=== PATIENT | female | born 1940 | race Caucasian/White ===

== ENCOUNTER 2017-11-18 10:27 | Emergency (ER) | payer MEDICARE ==
[~2017-11-18] VITALS: Ht 152.4 cm; Wt 58.5 kg
[2017-11-18] MEDS ORDERED: ASCO500C18 PO (10:33)
[2017-11-18] MEDS ORDERED: CALCIUM (10:33)
--- NOTE | 2017-11-18 10:38 | NUR ---
PT IS IN ROOM #2A. DR CLEMONS EVALUATED THE PT.
[2017-11-18] MEDS ORDERED: HYDROCODONE/APAP 5-325MG TABLET PO ONE (10:45)
[2017-11-18] MEDS ORDERED: HYDROCODONE/APAP 5-325MG TABLET ONE (10:45)
[2017-11-18 11:31] LABS: *BLOOD, URINE 1+ (NEGATIVE); *CLARITY,URINE CLEAR (CLEAR); *COLOR,URINE YELLOW (YELLOW); *KETONES,URINE 3+ (NEGATIVE); *UROBILINOGEN,URINE 0.2 E.U./dl (NORMAL); LEUKOCYTE ESTERASE ,URINE NEGATIVE (NEGATIVE); NITRITE, URINE NEGATIVE (NEGATIVE); PH,URINE 5.5 (5.0-8.0); UGLUCOSE NEGATIVE (NEGATIVE)
[2017-11-18 11:54] LABS: *BILIRUBIN,URIN 1+ (NEGATIVE); *PROTEIN,URINE 1+ (NEGATIVE)
[2017-11-18 11:55] LABS: BACTERIA,URINE NONE SEEN /HPF (NONE SEEN); SQUAMOUS EPITHELIAL CELL,UR FEW /HPF (NONE SEEN); WBC,URINE 0-3 /HPF (0-3)
[2017-11-18 11:56] LABS: MUCUS,URINE FEW /LPF (0-FEW)
[2017-11-18 12:30] VITALS: BP 142/81
--- NOTE | 2017-11-18 12:30 | NUR ---
PT WAS D/C TO HOME. D/C INSTRUCTIONS GIVEN TO THE PT.
== END 2017-11-18 12:31 | disposition home or self-care (01) ==
LOC: ER 10:27
DX: R10.9 Unspecified abdominal pain (principal); Z79.899 Other long term (current) drug therapy
CPT/HCPCS: A4663

== ENCOUNTER 2018-05-21 19:48 | Inpatient (IN) | payer MEDICARE ==
[~2018-05-21] VITALS: Ht 152.4 cm; Wt 52.2 kg
[~2018-05-21 19:48] MED LIST: ASCO500C18 PO; CALCIUM
[2018-05-21] MEDS ORDERED: IV NORMAL SALINE 1000 ML BAG IV ONE (21:15)
[2018-05-21] MEDS ORDERED: HYDROMORPHONE 1 MG/1 ML DISP.SYRIN IV ONE (21:15)
[2018-05-21] MEDS ORDERED: ONDANSETRON 4 MG/2 ML VIAL IV ONE (21:15)
[2018-05-21] MEDS ORDERED: ONDANSETRON 4 MG/2 ML VIAL ONE (21:23)
[2018-05-21] MEDS ORDERED: HYDROMORPHONE 1 MG/1 ML DISP.SYRIN ONE (21:23)
[2018-05-21 21:40] LABS: BASOPHILS # (AUTO) 0.1 K/uL (0.0-8.0); BASOPHILS % (AUTO) 0.7 % (0.0-2.0); EOSINOPHILS # (AUTO) 0.1 K/uL (0.0-0.7); EOSINOPHILS % (AUTO) 0.6 % (0.0-7.0); HEMATOCRIT 44.8 % (31.2-41.9); LYMPHOCYTES % (AUTO) 7.8 % (20.5-51.5); MEAN CORPUSCULAR HEMOGLOBIN 30.8 uug (24.7-32.8); MEAN CORPUSCULAR HGB CONC 33 g/dL (32.3-35.6); MEAN CORPUSCULAR VOLUME 92.1 fL (75.5-95.3); MONOCYTES # (AUTO) 0.7 K/uL (2.0-10.0); MONOCYTES % (AUTO) 5.2 % (0.0-11.0); NEUTROPHILS % (AUTO) 85.7 % (38.5-71.5); PLATELET COUNT (AUTO) 396 K/uL (179-408); RED BLOOD CELL COUNT(AUTO) 4.86 MIL/uL (3.63-4.92); WHITE BLOOD COUNT (AUTO) 12.8 K/uL (3.8-11.8)
[2018-05-21 21:48] LABS: CARBON DIOXIDE 27 mmol/L (21-32); CHLORIDE 105 mmol/L (98-107); CREATININE 0.6 mg/dL (0.6-1.3); GLUCOSE 109 mg/dL (74-106); POTASSIUM 4.5 mmol/L (3.5-5.1); UREA NITROGEN, BLOOD 16 mg/dL (7-18)
[2018-05-21 21:54] LABS: ALANINE AMINOTRANSFERASE 26 U/L (14-59); ASPARTATE AMINOTRANSFERASE 20 U/L (15-37); BILIRUBIN,DIRECT < 0.1 mg/dL (0.0-0.2); BILIRUBIN,TOTAL 0.4 mg/dL (0.2-1.0); TOTAL PROTEIN, SERUM 6.9 g/dL (6.4-8.2)
[2018-05-21 22:07] LABS: ALKALINE PHOSPHATASE 97 U/L (50-136)
[2018-05-21] MEDS ORDERED: PIPERACILLIN/TAZO 4.5 GM VIAL IV ONE (23:07)
[2018-05-21] MEDS ORDERED: ACETAMINOPHEN 650 MG SUPP.RECT RC PRN (23:15)
[2018-05-21] MEDS ORDERED: LORAZEPAM 2 MG/1 ML VIAL IM PRN (23:15)
[2018-05-21] MEDS ORDERED: ONDANSETRON 4 MG/2 ML VIAL IV PRN (23:15)
[2018-05-22] VITALS: BP 113/70
[2018-05-22] MEDS: IV D5/ 0.9% NACL 1,000 ML IV PRN ×2 (01:34→17:00)
[2018-05-22 04:00] VITALS: BP 114/69
[2018-05-22 06:31] LABS: BASOPHILS % (AUTO) 0.2 % (0.0-2.0); EOSINOPHILS % (AUTO) 0.4 % (0.0-7.0); HEMATOCRIT 40.9 % (31.2-41.9); HEMOGLOBIN 13.6 g/dL (10.9-14.3); LYMPHOCYTES # (AUTO) 0.8 K/uL (20.0-40.0); LYMPHOCYTES % (AUTO) 6.9 % (20.5-51.5); MEAN CORPUSCULAR HEMOGLOBIN 30.2 uug (24.7-32.8); MEAN CORPUSCULAR HGB CONC 33 g/dL (32.3-35.6); MEAN CORPUSCULAR VOLUME 91.1 fL (75.5-95.3); MONOCYTES # (AUTO) 1.1 K/uL (2.0-10.0); MONOCYTES % (AUTO) 9.3 % (0.0-11.0); NEUTROPHILS # (AUTO) 10.1 K/uL (1.8-8.9); NEUTROPHILS % (AUTO) 83.2 % (38.5-71.5); PLATELET COUNT (AUTO) 360 K/uL (179-408); RED BLOOD CELL COUNT(AUTO) 4.48 MIL/uL (3.63-4.92); WHITE BLOOD COUNT (AUTO) 12.2 K/uL (3.8-11.8)
[2018-05-22 06:52] LABS: THYROID STIMULATING HORMONE 0.665 mIU/mL (0.358-3.740)
[2018-05-22 07:10] LABS: MAGNESIUM 2.2 mg/dL (1.8-2.4); PHOSPHOROUS 3.4 mg/dL (2.5-4.9)
[2018-05-22] MEDS: PANTOPRAZOLE SODIUM 40 MG VIAL IV SCH (08:30)
[2018-05-22 10:45] VITALS: BP 128/76
[2018-05-22 10:58] LABS: CARBON DIOXIDE 24 mmol/L (21-32); CHLORIDE 108 mmol/L (98-107); CREATININE 0.6 mg/dL (0.6-1.3); GLUCOSE 118 mg/dL (74-106); POTASSIUM 4.3 mmol/L (3.5-5.1); UREA NITROGEN, BLOOD 18 mg/dL (7-18)
[2018-05-22] MEDS: ALBUTEROL SULFATE 2.5 MG/3 ML NEBU NEB SCH ×2 (11:09→19:08)
[2018-05-22] MEDS: IPRATROPIUM BROMIDE 0.5 MG/2.5 ML NEBU NEB SCH ×2 (11:09→19:07)
[2018-05-22] MEDS ORDERED: IOHEXOL 350 100 ML INFUS..BTL IV ONE (12:27)
[2018-05-22] MEDS ORDERED: SWABABLE VALVE TRANSFER SET EA MC ONE (12:27)
[2018-05-22] MEDS ORDERED: IV NORMAL SALINE 250 ML BAG IV ONE (12:27)
[2018-05-22 13:10] LABS: *BILIRUBIN,URIN NEGATIVE (NEGATIVE); *BLOOD, URINE Trace-intact (NEGATIVE); *CLARITY,URINE CLEAR (CLEAR); *COLOR,URINE YELLOW (YELLOW); *KETONES,URINE NEGATIVE (NEGATIVE); *PROTEIN,URINE NEGATIVE (NEGATIVE); *UROBILINOGEN,URINE 0.2 E.U./dl (NORMAL); LEUKOCYTE ESTERASE ,URINE NEGATIVE (NEGATIVE); NITRITE, URINE NEGATIVE (NEGATIVE); PH,URINE 5.5 (5.0-8.0); UGLUCOSE NEGATIVE (NEGATIVE)
[2018-05-22 13:19] LABS: BACTERIA,URINE NONE SEEN /HPF (NONE SEEN); SQUAMOUS EPITHELIAL CELL,UR FEW /HPF (NONE SEEN); WBC,URINE 0-3 /HPF (0-3)
[2018-05-22] MEDS: MORPHINE SULFATE 4 MG/1 ML DISP.SYRIN IV PRN ×2 (15:03→19:50)
[2018-05-22 15:13] VITALS: BP 117/65
[2018-05-22] MEDS ORDERED: CALC-883 PO (19:18)
[2018-05-22] MEDS ORDERED: ALEN70TA3 PO (19:22)
[2018-05-22 20:00] VITALS: BP 154/84
[2018-05-23] VITALS: BP 124/80
[2018-05-23 04:00] VITALS: BP 136/85
[2018-05-23] MEDS: IPRATROPIUM BROMIDE 0.5 MG/2.5 ML NEBU NEB SCH (06:36)
[2018-05-23] MEDS: ALBUTEROL SULFATE 2.5 MG/3 ML NEBU NEB SCH (06:36)
[2018-05-23] MEDS: PANTOPRAZOLE SODIUM 40 MG VIAL IV SCH (08:38)
[2018-05-23 11:15] VITALS: BP 136/88
[2018-05-23] MEDS ORDERED: FLUT1BLS4 IH (13:13)
[2018-05-23] MEDS ORDERED: IPRA0.2S6 NEB (13:13)
[2018-05-23] MEDS ORDERED: PANT40VI IV (13:13)
[2018-05-23] MEDS ORDERED: LORA2VIA6 IM (13:13)
[2018-05-23] MEDS ORDERED: CEFA1VIA19 IM (13:13)
[2018-05-23] MEDS ORDERED: ACET650S24 RC (13:13)
[2018-05-23] MEDS ORDERED: ALBU2.5V7 NEB (13:13)
[2018-05-23] MEDS ORDERED: Morphine Sulfate Inj IV (13:13)
[2018-05-23] MEDS ORDERED: ONDA4VIA23 IV (13:13)
[2018-05-23] MEDS ORDERED: LEVAQUIN (13:18)
[2018-05-23] MEDS: MORPHINE SULFATE 4 MG/1 ML DISP.SYRIN IV PRN (13:38)
[2018-05-28] MEDS ORDERED: ALENDRONATE SODIUM 70 MG TABLET PO SCH (06:00)
== END 2018-05-23 14:10 | disposition short-term general hospital (02) | DRG 542 ==
LOC: ER 19:50 → TELE 23:36
PROVIDERS: ADMIT Internal Medicine; ATTEND Internal Medicine
PROC: 2W6PX0Z Traction of Left Upper Leg using Traction Apparatus (ICD-10-PCS; principal; 2018-05-21)
DX: M80.052A Age-related osteoporosis with current pathological fracture, left femur, initial encounter for fracture (principal); J96.21 Acute and chronic respiratory failure with hypoxia; J44.1 Chronic obstructive pulmonary disease with (acute) exacerbation; W01.0XXA Fall on same level from slipping, tripping and stumbling without subsequent striking against object, initial encounter; Y92.019 Unspecified place in single-family (private) house as the place of occurrence of the external cause; F17.210 Nicotine dependence, cigarettes, uncomplicated; Z85.3 Personal history of malignant neoplasm of breast; Z92.3 Personal history of irradiation; Z92.21 Personal history of antineoplastic chemotherapy; Z90.11 Acquired absence of right breast and nipple; J44.9 Chronic obstructive pulmonary disease, unspecified; E78.5 Hyperlipidemia, unspecified; R16.0 Hepatomegaly, not elsewhere classified; M19.90 Unspecified osteoarthritis, unspecified site; Z90.710 Acquired absence of both cervix and uterus; R94.31 Abnormal electrocardiogram [ECG] [EKG]; Z91.81 History of falling; M89.9 Disorder of bone, unspecified
CPT/HCPCS: 36415; 70030-TC; 71045; 71275; 72192; 82652; 83735; 84100; 84443; 85025; 85730; 87086; 93005; 94640; 94664; A4663; C9113; G0378; J1170; J2060; J2270; J2405; J2543; J3590; J7030; J7042; J7050; J7060; Q9967